=== PATIENT | male | born 1970 | race African-American/Black ===

== ENCOUNTER → 2016-07-23 10:58 | Outpatient (CLI) | payer MEDICAID ==
--- NOTE | 2016-08-05 08:45 | EEG ---
PATIENT:ANY THOMAS DATE OF SERVICE: 07/23/16 MEDICAL RECORD: [id number] DATE OF : 68 LOCATION: [facility] ADMISSION DATE: 07/23/16 REFERRING PHYSICIAN: INTERPRETING PHYSICIAN: JILLIAN CLEMENTE MD DATE OF SERVICE: 07/23/2016 REFERRED BY: Dr. Ronalod Jeffrey as an outpatient. ELECTROENCEPHALOGRAM NUMBER: #[id number] DATE OF EXAMINATION: 07/23/2016 at 11:45 a.m. TECHNICAL DATA: This electroencephalographic recording consisted of approximately 20 minutes of data collection utilizing the international 10/20 system of electrode placement and both referential and non-referential montages. Sixteen channels of electrocerebral recording are accompanied by a 17th channel dedicated to the electrocardiographic rhythm and 2 channels of electromyographic recording. Recording is performed entirely in the waking state utilizing activation by hyperventilation and photic stimulation. ELECTROENCEPHALOGRAPHIC DATA: The entirety of the recorded electrocerebral activity is performed in the waking state. Electromyographic artifact is prominent and rapid eye movements are seen. The posterior dominant background consists of a well-developed, symmetric, rhythmic, waxing and waning alpha activity of 9-10 Hz which is suppressed by eye opening. No abnormal or focal slowing is identified. No epileptiform discharges are seen. Hyperventilation and photic stimulation induced. No abnormal change in the recorded electrocerebral activity. INTERPRETATION: Normal (awake). This is a normal waking electroencephalographic recording. TRANSINT:[id number] Voice Confirmation ID: [id number] DOCUMENT ID: [id number] JILLIAN CLEMENTE MD at 0845 CC: [id number] DICTATION DATE: 07/25/16 0802 COMMUNITY DEVELOPMENT AIDE: 07/26/16 0041 DEP CLI 07/23/16 [facility] [address] [id number]
== END | disposition home or self-care (01) ==
LOC: D.CN 10:58
DX: R55 Syncope and collapse (principal)

== ENCOUNTER 2019-02-01 21:16 | Emergency (ER) | payer SELFPAY ==
[~2019-02-01] VITALS: Ht 180.3 cm; Wt 101.4 kg
[2019-02-01] MEDS ORDERED: ZESTRIL10 MG PO (21:40)
[2019-02-01] MEDS ORDERED: NEURONTIN 300300 MG PO (21:40)
[2019-02-01] MEDS ORDERED: KEPPRA500 MG PO (21:41)
[2019-02-01] MEDS ORDERED: BAYER CHEWABLE81 MG PO (21:42)
== END 2019-02-01 23:26 | disposition left against medical advice (07) ==
LOC: D.ER 21:16
DX: K08.89 Other specified disorders of teeth and supporting structures (principal)

== ENCOUNTER 2020-02-15 16:40 | Emergency (ER) | payer OTHER ==
[~2020-02-15] VITALS: Ht 182.9 cm; Wt 90.9 kg
[~2020-02-15 16:40] MED LIST: BAYER CHEWABLE81 MG PO; KEPPRA500 MG PO; NEURONTIN 300300 MG PO; ZESTRIL10 MG PO
[2020-02-15 16:41] VITALS: Ht 182.9 cm; Wt 90.9 kg
[2020-02-15] MEDS ORDERED: INSULIN (16:43)
[2020-02-15 17:35] LABS: BASOPHILS 0.2 % (0-2); EOSINOPHILS 2.2 % (0-7); HEMOGLOBIN 13.6 g/dL (13.5-17.5); LYMPHOCYTES 27.2 % (15-50); MCH 26.7 pg (26.0-34.0); MCHC 33.2 g/dL (31.0-37.0); MCV 80.4 fL (80.0-100.0); MEAN PLATELET VOLUME 9.7 fL (7.4-10.4); MONOCYTES 9.6 % (2-11); NEUTROPHILS 60.8 % (40-80); PLATELET COUNT 136 10x3/uL (130-400); RDW 14.1 % (11.5-14.5); WBC 5.1 10x3/uL (4.8-10.8)
[2020-02-15 17:43] LABS: ANION GAP 10.5 mmol/L (8-16); CALCIUM 8.4 mg/dL (8.5-10.1); CARBON DIOXIDE 25.8 mmol/L (21.0-32.0); CREATININE - SERUM 1.8 mg/dL (0.6-1.3); POTASSIUM - SERUM 4.3 mmol/L (3.5-5.1)
[2020-02-15 17:45] LABS: INR 0.94 (0.85-1.17); PROTIME 12.5 SECONDS (11.6-15.0)
[2020-02-15 17:49] LABS: ALBUMIN 3.4 g/dL (3.4-5.0); BILIRUBIN - TOTAL 0.22 mg/dL (0.2-1.3); PROTEIN - SERUM 6.6 g/dL (6.4-8.2)
[2020-02-15 18:03] LABS: BILIRUBIN NEGATIVE (NEGATIVE); GLUCOSE NEGATIVE (NEGATIVE); KETONE NEGATIVE (NEGATIVE); NITRITE NEGATIVE (NEGATIVE); UROBILINOGEN NORMAL (NORMAL)
[2020-02-15] MEDS ORDERED: HYDROCODON-ACE1 EAC7 PO (18:12)
[2020-02-15] MEDS ORDERED: NORVASC10 MG PO (18:18)
[2020-02-15] MEDS ORDERED: CATAPRES0.1 MG PO (18:19)
[2020-02-15] MEDS ORDERED: FOLIC ACID1 MG PO (18:20)
[2020-02-15] MEDS ORDERED: GLIPIZIDE10 MG PO (18:21)
[2020-02-15] MEDS ORDERED: HYDRALAZINE HCL50 MG PO (18:22)
[2020-02-15] MEDS ORDERED: NORMODYNE / TR200 MG PO (18:23)
[2020-02-15] MEDS ORDERED: XALATAN 0.0052.5 ML EACH EYE (18:24)
[2020-02-15] MEDS ORDERED: COZAAR25 MG PO (18:25)
[2020-02-15] MEDS ORDERED: OMEPRAZOLE20 M1 PO (18:26)
[2020-02-15] MEDS ORDERED: PRAVACHOL20 MG PO (18:27)
[2020-02-15] MEDS ORDERED: REQUIP0.25 MG PO (18:28)
[2020-02-15] MEDS ORDERED: ALDACTONE25 MG PO (18:28)
[2020-02-15] MEDS ORDERED: VITAMIN B-1100 M1 PO (18:29)
[2020-02-15 18:48] VITALS: BP 133/84
== END 2020-02-15 18:48 | disposition home or self-care (01) ==
LOC: D.ER 16:40
PROVIDERS: Family Medicine
DX: N17.9 Acute kidney failure, unspecified (principal); V89.2XXA Person injured in unspecified motor-vehicle accident, traffic, initial encounter; Y93.9 Activity, unspecified; Y92.9 Unspecified place or not applicable; E11.40 Type 2 diabetes mellitus with diabetic neuropathy, unspecified; I10 Essential (primary) hypertension; Z79.4 Long term (current) use of insulin